=== PATIENT | female | born 1935 | race Caucasian/White ===

== ENCOUNTER 2019-08-13 16:17 | Inpatient (IN) | payer MEDICARE, OTHER ==
[~2019-08-13] VITALS: Ht 154.9 cm; Wt 70.6 kg
[2019-08-13 16:24] VITALS: BP 110/67
[2019-08-13] MEDS ORDERED: LISINOPRIL2.5 MG PO (16:29)
[2019-08-13] MEDS ORDERED: CRESTOR20 MG PO (16:30)
[2019-08-13] MEDS ORDERED: NORVASC 2.5 MG2.5 M1 PO (16:30)
[2019-08-13] MEDS ORDERED: ASA81BEC PO (16:30)
[2019-08-13] MEDS ORDERED: TOPROL XL25 MG PO (16:30)
[2019-08-13] MEDS ORDERED: OMEPRAZOLE 20 M20 M1 PO (16:30)
[2019-08-13] MEDS ORDERED: IMDUR 30 MG TAB30 M1 PO (16:31)
[2019-08-13 18:26] LABS: ABSOLUTE BASOPHILS 0.1 thou/uL (0.0-0.2); ABSOLUTE NEUTROPHILS 5.5 thou/uL (1.6-8.1); BASOPHILS 0.8 %; EOSINOPHILS 0.1 %; HEMATOCRIT 41.4 % (37.0-47.0); HEMOGLOBIN 13.8 gm/dL (12.0-15.0); LYMPHOCYTES 23.4 %; MCH 25.9 pg (26.0-34.0); MCHC 33.3 g/dL (28.0-37.0); MCV 77.8 fL (80.0-100.0); MONOCYTES 11.6 %; MPV 8.6 fl. (7.2-11.1); NUCLEATED RBCS 0 /100WBC; PLATELET COUNT* 257 thou/uL (150-400); POLYS 64.1 %; RBC 5.33 mil/uL (4.20-5.00); RDW-CV 14.1 % (10.5-14.5); WBC 8.6 thou/uL (4.0-11.0)
[2019-08-13 18:43] LABS: CALCIUM 8.5 mg/dL (8.5-10.1); CREATININE 2.6 mg/dL (0.6-1.3); POTASSIUM 3.3 mmol/L (3.5-5.1)
[2019-08-13 18:47] LABS: ALBUMIN 3.9 g/dL (3.4-5.0); TOTAL BILIRUBIN 0.4 mg/dL (<0.1-1.0); TOTAL PROTEIN 8.2 g/dL (6.4-8.2)
[2019-08-13 19:11] LABS: INFLUENZA A ANTIGEN Negative (Negative); INFLUENZA B ANTIGEN Negative (Negative)
[2019-08-14] VITALS (7 sets, daily range): BP systolic 110–137; BP diastolic 35–61
[2019-08-14 09:10] LABS: CALCIUM 7.4 mg/dL (8.5-10.1); POTASSIUM 3.6 mmol/L (3.5-5.1)
[2019-08-14 09:11] LABS: CREATININE 1.5 mg/dL (0.6-1.3)
[2019-08-14 14:53] LABS: URINE BILIRUBIN NEGATIVE (Negative); URINE BLOOD NEGATIVE (Negative); URINE CLARITY CLEAR; URINE COLOR YELLOW; URINE GLUCOSE-RANDOM NEGATIVE (Negative); URINE KETONES NEGATIVE (Negative); URINE LEUKOCYTES-REFLEX 1+ (Negative); URINE NITRITE-REFLEX NEGATIVE (Negative); URINE PROTEIN NEGATIVE (Negative); URINE SPECIFIC GRAVITY <= 1.005 (1.005-1.030); URINE UROBILINOGEN 0.2 E.U./dl (0.2-1.0)
[2019-08-14 15:01] LABS: SQUAMOUS >10 Many /LPF (0-3)
[2019-08-14 15:02] LABS: URINE RBC 0-2 Rare /HPF (0-2); URINE WBC-REFLEX 6-15 Few /HPF (0-5)
[2019-08-14 15:03] LABS: CASTS None Seen /LPF (None Seen); CRYSTALS None Seen /LPF (None Seen); MUCUS 0-3 Light strn/LPF (None Seen)
--- NOTE | 2019-08-14 16:34 | EKG ---
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
[2019-08-14] MEDS ORDERED: LOPRESSOR50 MG PO (21:43)
[2019-08-15 00:36] VITALS: BP 121/46
[2019-08-15 04:00] VITALS: BP 121/57
[2019-08-15 05:01] LABS: HEMATOCRIT 30.7 % (37.0-47.0); MCH 26.4 pg (26.0-34.0); MCHC 33.6 g/dL (28.0-37.0); MCV 78.4 fL (80.0-100.0); MPV 8.3 fl. (7.2-11.1); RBC 3.92 mil/uL (4.20-5.00); RDW-CV 14.6 % (10.5-14.5)
[2019-08-15 05:16] LABS: HEMOGLOBIN 10.3 gm/dL (12.0-15.0)
[2019-08-15 05:36] LABS: ALBUMIN 2.6 g/dL (3.4-5.0); CALCIUM 7.3 mg/dL (8.5-10.1); CREATININE 1.1 mg/dL (0.6-1.3); MAGNESIUM 1.9 mg/dL (1.8-2.4); POTASSIUM 3.4 mmol/L (3.5-5.1); TOTAL BILIRUBIN 0.1 mg/dL (<0.1-1.0); TOTAL PROTEIN 5.6 g/dL (6.4-8.2)
[2019-08-15 12:09] VITALS: BP 145/49
[2019-08-15 16:38] VITALS: BP 147/59
[2019-08-15 20:00] VITALS: BP 159/56
[2019-08-16 00:22] VITALS: BP 153/45
[2019-08-16 05:01] LABS: HEMATOCRIT 31.2 % (37.0-47.0); HEMOGLOBIN 10.4 gm/dL (12.0-15.0); MCH 26.1 pg (26.0-34.0); MCHC 33.3 g/dL (28.0-37.0); MCV 78.2 fL (80.0-100.0); MPV 8.5 fl. (7.2-11.1); RBC 3.99 mil/uL (4.20-5.00); RDW-CV 14.4 % (10.5-14.5); WBC 4.9 thou/uL (4.0-11.0)
[2019-08-16 05:09] LABS: CALCIUM 8.3 mg/dL (8.5-10.1); CREATININE 0.9 mg/dL (0.6-1.3); MAGNESIUM 1.7 mg/dL (1.8-2.4); POTASSIUM 3.4 mmol/L (3.5-5.1)
[2019-08-16 08:00] VITALS: BP 133/76
[2019-08-16 15:05] LABS: MAGNESIUM 1.7 mg/dL (1.8-2.4); POTASSIUM 3.2 mmol/L (3.5-5.1)
[2019-08-16 16:08] VITALS: BP 142/55
[2019-08-16 20:00] VITALS: BP 135/51
[2019-08-17 00:22] VITALS: BP 144/57
[2019-08-17 05:41] LABS: POTASSIUM 4.6 mmol/L (3.5-5.1)
[2019-08-17 09:00] VITALS: BP 169/73
[2019-08-17] MEDS ORDERED: FLAGYL500 M1 PO (10:33)
[2019-08-17] MEDS ORDERED: CEFUROXIME500 MG PO (10:33)
[2019-08-17] MEDS ORDERED: ACIDOPHILUS1 EAC4 PO (10:33)
[2019-08-17] MEDS ORDERED: ZOFRAN ODT4 MG PO (10:33)
[2019-08-17 11:00] VITALS: BP 169/73
== END 2019-08-17 11:55 | disposition home or self-care (01) | DRG 371 ==
LOC: M.ERS 16:17 → M.TBA-ER 21:34 → M.2W 08-14 18:53
PROVIDERS: Internal Medicine; Nurse Practitioner Family; Physician Assistant; ADMIT Internal Medicine
DX: A04.9 Bacterial intestinal infection, unspecified (principal); N17.0 Acute kidney failure with tubular necrosis; I10 Essential (primary) hypertension; E89.0 Postprocedural hypothyroidism; Z98.1 Arthrodesis status; Z90.49 Acquired absence of other specified parts of digestive tract; Z79.82 Long term (current) use of aspirin; Z88.1 Allergy status to other antibiotic agents; Z79.899 Other long term (current) drug therapy

== ENCOUNTER → 2019-10-31 | Outpatient (CLI) | payer MEDICARE, OTHER ==
[~2019-10-31] MED LIST: ACIDOPHILUS1 EAC4 PO; ASA81BEC PO; ASPIR 8181 M1 PO; BIDIL TABLET1 EACH PO; CEFUROXIME500 MG PO; CRESTOR20 MG PO; FLAGYL500 M1 PO; IMDUR 30 MG TAB30 M1 PO; ISOSORBIDE MONO30 M1 PO; LISINOPRIL2.5 MG PO; LOPRESSOR50 MG PO; NORVASC 2.5 MG2.5 M1 PO; OMEPRAZOLE 20 M20 M1 PO; TOPROL XL25 MG PO; ZOFRAN ODT4 MG PO
== END ==
LOC: M.ULTRA 14:38
DX: E04.2 Nontoxic multinodular goiter (principal); M19.011 Primary osteoarthritis, right shoulder; M75.82 Other shoulder lesions, left shoulder; M75.81 Other shoulder lesions, right shoulder; W19.XXXA Unspecified fall, initial encounter; Y93.89 Activity, other specified; Y92.89 Other specified places as the place of occurrence of the external cause; Y99.8 Other external cause status

== ENCOUNTER 2019-11-03 17:04 | Inpatient (IN) | payer MEDICARE, OTHER ==
[~2019-11-03] VITALS: Ht 154.9 cm; Wt 71.7 kg
--- NOTE | ~2019-11-03 | CON ---
[address] [address] CONSULTATION Name: EDWARDVIDALLEONIDAS Silvia Room: [address] IN .R.#: [id number] Admission: 11/03/19 Attend Phys: Fidel Joy MD Discharge: Date of : 35 Report #: [id number] THIS REPORT FOR: //name// cc: Naty Montgomery Maggie M. DO ~ THIS REPORT FOR: //name// CC: Fidel Montgomery CARDIOLOGY CONSULTATION HISTORY OF PRESENT ILLNESS: I was asked by Dr. Joy to see this 84-year-old white female in cardiology consultation for a minimal troponin elevation. This lady has a history of apparent coronary spasm, although it has never been documented. She has had episodes of both chest and left arm pain in the past in [place], [place] where she had cardiac catheterization x 2, both of which were negative. She has been treated as apparent coronary spasm because of minimal troponin elevations. She did apparently have a normal troponin on a recent admission here for a bacterial infection. She came in this time because she thought she was having a stroke. It was associated though with left arm discomfort that started at her neck and going down to her left arm to her elbow. She has had that before, but not with the stroke-like symptoms. She said she had numbness in the left face and drooling from the left side of her mouth, and numbness and weakness in the left upper extremity from the elbow to the shoulder, to the ER doctor that turned into the pain when she was questioned later and numbness in the right face and drooling on the right side of the mouth. She also said she could not talk right and could not think right. She says yesterday that the left side of her face was numb and tingly. She has no previous history of TIA or CVA. 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 She says her thyroid feels like it is constantly choking her. She recently had a thyroid ultrasound for this problem and was found to have thyroid nodules; however, she does not have a palpable thyroid or palpable thyroid nodules. She is status post a left partial thyroidectomy 30 years ago. She is not having any further TIA or CVA like symptoms and not having any left arm pain. Her EKG when she came in demonstrated normal sinus rhythm, was a normal EKG. Her troponins were minimally elevated. I believe she only had 2 done, the initial one was at 1700 yesterday and was 0.13, a subsequent one done at 1900 was 0.09. Those were done in the ER. She is on amlodipine, apparently for her blood pressure, but possibly also for coronary spasm. She also has been on isosorbide mononitrate 30 mg daily, apparently for coronary spasm. ADDITIONAL MEDICATIONS: Include metoprolol 25 mg b.i.d., Crestor 20 mg daily, lisinopril 40 mg daily. Her amlodipine dose is 5 mg daily and her Imdur dose is 30 [place] [address] CONSULTATION Name: EDWARDLEONIDAS BROOKS Room: [address] IN ..#: [id number] Admission: 11/03/19 Attend Phys: Fidel Joy MD Discharge: Date of : 35 Report #: [id number] PAST MEDICAL HISTORY: She does have a past medical history of hypercholesterolemia and hypertension. She was in [place] with a bacterial infection at the end of July. FAMILY HISTORY: Remarkable for mother dying of cancer and a sister dying of cancer. ALLERGIES: SHE IS ALLERGIC TO CIPRO AND BACTRIM. SOCIAL HISTORY: She is , does not smoke, drink or use illegal drugs. REVIEW OF SYSTEMS: Positive for palpitations, nearly passing out, heart murmur, extremity edema and thyroid trouble, otherwise is negative for some 45 different complaints in 14 different system categories. Please see review of system form for details and negatives in the review of systems. The categories reviewed include central nervous system, general, respiratory, cardiovascular, endocrine, gastrointestinal, genitourinary, hematologic, lymphatic, allergic, immunologic, psychiatric, musculoskeletal, skin, eyes, ears, nose, mouth, and throat. PHYSICAL EXAMINATION: GENERAL: She presents as a well-developed, well-nourished white female, in no acute distress. VITAL SIGNS: Her pulse was 61 and regular, blood pressure 146/81, respirations 18 and regular, temperature is 98.0. HEENT: Her head was atraumatic. Eyes clear. NECK: Supple. There is no jugular venous distention or hepatojugular reflux. Thyroid is not enlarged. There is no adenopathy. SKIN: Warm and dry. Mucous membranes are moist. LUNGS: Clear to auscultation and percussion. HEART: Revealed normal first and second heart sound. There is soft S4. There is no S3. There are no murmurs, rubs, thrills, heaves or gallops. PMI is nondisplaced. ABDOMEN: Soft, flat and nontender. No palpable masses, no organomegaly. EXTREMITIES: Reveal no cyanosis, clubbing or edema. NEUROLOGIC: The patient mentated normally, talked normally, moved all extremities normally. IMPRESSION: 1. Minimal troponin elevation. 2. Left arm pain. 3. Possible transient ischemic attack. 4. History of possible coronary spasm. 5. Essential hypertension. 6. Hypercholesterolemia. RECOMMENDATION: I will get another troponin to see if it returned to normal [address] [address] CONSULTATION Name: LEONIDAS CRUZ Room: [address]#: [id number] Admission: 11/03/19 Attend Phys: Fidel Joy MD Discharge: Date of : 35 Report #: [id number] level and stop the BiDil that she has been getting in the hospital and put her on the Imdur that she has been getting. I will get an echo and a stress test. Thank you very much for asking me to see this patient. If there are any questions, please feel free to contact me. By: [id number]. Chris Stephenson MD, FACC /nt
[~2019-11-03 17:04] MED LIST changes: -ASPIR 8181 M1 PO; -BIDIL TABLET1 EACH PO; -ISOSORBIDE MONO30 M1 PO
[2019-11-03 17:08] VITALS: BP 125/71
[2019-11-03] MEDS ORDERED: LISINOPRIL2.5 MG PO (17:22)
[2019-11-03] MEDS ORDERED: BIDIL TABLET1 EACH PO (17:23)
[2019-11-03 17:24] LABS: ABSOLUTE BASOPHILS 0.2 thou/uL (0.0-0.2); ABSOLUTE EOSINOPHILS 0.3 thou/uL (0.0-0.7); ABSOLUTE LYMPHOCYTES 5.2 thou/uL (0.8-5.3); ABSOLUTE NEUTROPHILS 8.8 thou/uL (1.6-8.1); BASOPHILS 1.4 %; EOSINOPHILS 1.8 %; HEMATOCRIT 40.8 % (37.0-47.0); HEMOGLOBIN 13.6 gm/dL (12.0-15.0); LYMPHOCYTES 33.5 %; MCH 26.5 pg (26.0-34.0); MCHC 33.2 g/dL (28.0-37.0); MCV 79.6 fL (80.0-100.0); MONOCYTES 6.3 %; NUCLEATED RBCS 0 /100WBC; PLATELET COUNT* 282 thou/uL (150-400); RBC 5.13 mil/uL (4.20-5.00); RDW-CV 15.1 % (10.5-14.5); WBC 15.4 thou/uL (4.0-11.0)
[2019-11-03] MEDS ORDERED: NORVASC 2.5 MG2.5 M1 PO (17:24)
[2019-11-03 17:31] LABS: CALCIUM 8.3 mg/dL (8.5-10.1); CREATININE 1.1 mg/dL (0.6-1.3); POTASSIUM 3.8 mmol/L (3.5-5.1)
[2019-11-03 17:33] LABS: APTT 22.4 Seconds (25.0-31.3); PROTIME 9.8 Seconds (9.20-11.50)
[2019-11-03 17:35] LABS: ALBUMIN 3.2 g/dL (3.4-5.0); TOTAL BILIRUBIN 0.3 mg/dL (<0.1-1.0); TOTAL PROTEIN 6.8 g/dL (6.4-8.2)
[2019-11-03 19:43] LABS: URINE BILIRUBIN NEGATIVE (Negative); URINE BLOOD NEGATIVE (Negative); URINE CLARITY CLEAR; URINE COLOR YELLOW; URINE GLUCOSE-RANDOM NEGATIVE (Negative); URINE KETONES NEGATIVE (Negative); URINE LEUKOCYTES-REFLEX TRACE (Negative); URINE NITRITE-REFLEX NEGATIVE (Negative); URINE PROTEIN NEGATIVE (Negative); URINE UROBILINOGEN 0.2 E.U./dl (0.2-1.0)
[2019-11-03 19:48] LABS: SQUAMOUS 0-3 Few /LPF (0-3); URINE RBC 0-2 Rare /HPF (0-2); URINE WBC-REFLEX 0-5 Rare /HPF (0-5)
[2019-11-03 19:49] LABS: BACTERIA-REFLEX 1-9 Few /HPF (None Seen); CRYSTALS None Seen /LPF (None Seen); HYALINE CASTS 0-3 Few /LPF (None Seen)
[2019-11-03 20:27] VITALS: BP 127/51
[2019-11-03 21:00] VITALS: BP 126/47
[2019-11-04] VITALS: BP 154/55
[2019-11-04 04:00] VITALS: BP 146/81
[2019-11-04 11:40] LABS: CHOLESTEROL 153 mg/dL (<200); HDL CHOLESTEROL 54 mg/dL (>40); LDL CHOLESTEROL 54 mg/dL (<100); TC:HDL 2.8 Ratio (Not establshd); TRIGLYCERIDE 227 mg/dL (<150); VLDL 45 mg/dL (<40)
[2019-11-04 11:41] VITALS: BP 137/61
[2019-11-04 11:41] LABS: SERUM ASSESSMENT Clear
[2019-11-04 12:00] VITALS: BP 137/61; BP 84/46; BP 84/48
[2019-11-04 13:34] LABS: % SATURATION 41 % (20-39); IRON 99 ug/dL (50-175)
--- NOTE | 2019-11-04 15:34 | EKG ---
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 : 1935 Requested By: Sirena Looney Order Number: [id number] MD: Chris Stephenson Measurements Intervals [place] Rate: 78 P: 33 MD: 160 QRS: 28 QRSD: 78 T: 24 QT: 372 QTc: 424 Interpretive Statements Sinus rhythm Probable left atrial enlargement Compared to ECG 08/13/2019 18:01:21 No significant changes Electronically Signed On 11-04-2019 15:32:44 CDT by Chris Stephenson [email or web address] <ELECTRONICALLY SIGNED> By: Mazin Stephenson MD, [facility] 11/04/19 1532 1707 1707 Mazin Stephenson MD, [facility] /EPI
[2019-11-04 16:13] VITALS: BP 120/54
[2019-11-04 20:00] VITALS: BP 125/61
[2019-11-05] VITALS: BP 127/66
[2019-11-05 02:07] LABS: GLYCOHEMOGLOBIN (HGB A1C) 6.3 % (4.8-5.6)
[2019-11-05 04:00] VITALS: BP 129/54
[2019-11-05 04:53] LABS: URINE BILIRUBIN NEGATIVE (Negative); URINE BLOOD NEGATIVE (Negative); URINE CLARITY CLEAR; URINE COLOR YELLOW; URINE GLUCOSE-RANDOM NEGATIVE (Negative); URINE KETONES NEGATIVE (Negative); URINE LEUKOCYTES-REFLEX NEGATIVE (Negative); URINE NITRITE-REFLEX NEGATIVE (Negative); URINE PROTEIN NEGATIVE (Negative); URINE UROBILINOGEN 0.2 E.U./dl (0.2-1.0)
[2019-11-05 08:00] VITALS: BP 127/58
[2019-11-05 15:26] LABS: ABSOLUTE EOSINOPHILS 0.1 thou/uL (0.0-0.7); ABSOLUTE LYMPHOCYTES 2.4 thou/uL (0.8-5.3); ABSOLUTE MONOCYTES 0.8 thou/uL (0.0-1.2); ABSOLUTE NEUTROPHILS 8.9 thou/uL (1.6-8.1); BASOPHILS 0.2 %; EOSINOPHILS 0.8 %; HEMATOCRIT 39.3 % (37.0-47.0); HEMOGLOBIN 12.9 gm/dL (12.0-15.0); LYMPHOCYTES 19.4 %; MCH 26.5 pg (26.0-34.0); MCHC 32.9 g/dL (28.0-37.0); MCV 80.7 fL (80.0-100.0); MONOCYTES 6.4 %; NUCLEATED RBCS 0 /100WBC; POLYS 73.2 %; RBC 4.86 mil/uL (4.20-5.00); RDW-CV 15.7 % (10.5-14.5); WBC 12.2 thou/uL (4.0-11.0)
[2019-11-05 15:29] LABS: PLATELET COUNT* 196 thou/uL (150-400)
[2019-11-05 15:49] LABS: CALCIUM 8.3 mg/dL (8.5-10.1); POTASSIUM 4.2 mmol/L (3.5-5.1); TOTAL BILIRUBIN 0.6 mg/dL (<0.1-1.0); TOTAL PROTEIN 6.1 g/dL (6.4-8.2)
[2019-11-05 16:11] VITALS: BP 142/63
--- NOTE | 2019-11-05 16:37 | 2DMMODE ---
[place] [address] 2 D/M-MODE ECHOCARDIOGRAM Name: ANTHONYLEONIDAS Silvia Room: [address] IN [facility]#: [id number] Admission: 11/03/19 Attend Phys: Fidel Joy, Discharge: Date of : 35 Date of Service: 11/05/19 1635 Report #: [id number] THIS REPORT FOR: cc: Naty Montgomery Maggie M. DO Liston, Michael J. MD [facility] ~ APPROVED REPORT Study performed: 11/05/2019 09:56:57 EXAM: Comprehensive 2D, Doppler, and color-flow Echocardiogram Patient Location: In-Patient Room #: [facility] Status: routine BSA: 1.71 HR: 63 bpm BP: 129/54 mmHg Rhythm: NSR Other Information Study Quality: Good Indications CVA/TIA Elevated Troponin left arm pain Echo Enhancing Agent Indication: Rule out Shunt Agent(s) / Amount(s) Used: Agitated Saline 10 cc 2D Dimensions IVSd: 9.06 (7-11mm) LVOT Diam: 19.08 (18-24mm) LVDd: 43.77 mm PWd: 8.40 (7-11mm) Ascending Ao: 32.51 (22-36mm) LVDs: 24.27 (25-40mm) Aortic Root: 32.21 mm Volumes Left Atrial Volume (Systole) LA ESV Index: 29.40 mL/m2 Aortic Valve AoV Peak Jeffrey.: 1.44 m/[place] [address] 2 D/M-MODE ECHOCARDIOGRAM Name: LEONIDAS CRUZ Room: [address] IN [facility]#: [id number] Admission: 11/03/19 Attend Phys: Fidel Joy, Discharge: Date of : 35 Date of Service: 11/05/19 1635 Report #: [id number] Peak Gr.: 8.32 mmHg LVOT Max P.65 mmHg AO Mean Gr.: 3.75 mmHg LVOT Mean P.43 mmHg LVOT Max V: 1.19 m/s AO V2 VTI: 28.26 cm LVOT Mean V: 0.70 m/s ESTUARDO (VTI): 2.81 cm2 LVOT V1 VTI: 27.74 cm Mitral Valve MV Mean Gr.: 1.88 mmHg E/A Ratio: 0.73 MV Decel. Time: 360.39 ms MV E Max Jeffrey.: 0.91 m/s MV PHT: 104.51 ms MVA (PHT): 2.10 cm2 TDI E/Lateral E': 13.00 E/Medial E': 18.20 Medial E' Jeffrey.: 0.05 m/s Lateral E' Jeffrey.: 0.07 m/s Pulmonary Valve PV Peak Jeffrey.: 0.89 m/s PV Peak Gr.: 3.14 mmHg Tricuspid Valve RAP Estimate: 5.00 mmHg TR Peak Gr.: 25.52 mmHg RVSP: 30.00 mmHg PA Pressure: 30.00 mmHg Left Ventricle The left ventricle is normal size. There is normal LV segmental wall motion. There is normal left ventricular wall thickness. Left ventricular systolic function is normal. LVEF is 55-60%. Grade I - abnormal relaxation pattern. Right Ventricle The right ventricle is normal size. The right ventricular systolic function is normal. Atria The left atrium size is normal. The interatrial septum is intact with no evidence for an atrial septal defect. The right atrium size is normal. Aortic Valve The aortic valve is normal in structure. No aortic regurgitation is present. There is no aortic valvular stenosis[place] [address] 2 D/M-MODE ECHOCARDIOGRAM Name: LEONIDAS CRUZ Room: [address] IN [facility]#: [id number] Admission: 11/03/19 Attend Phys: Fidel Joy, Discharge: Date of : 35 Date of Service: 11/05/19 1635 Report #: [id number] There is mitral annular calcification. Trace mitral regurgitation. No evidence of mitral valve stenosis. Tricuspid Valve The tricuspid valve is normal in structure. Mild tricuspid regurgitation. No pulmonary hypertension. Pulmonic Valve The pulmonary valve is normal in structure. Trace pulmonic regurgitation. Great Vessels The aortic root is normal in size. IVC is normal in size and collapses >50% with inspiration. Pericardium There is no pericardial effusion. <Conclusion> The left ventricle is normal size. There is normal left ventricular wall thickness. Left ventricular systolic function is normal. LVEF is 55-60%. Grade I - abnormal relaxation pattern. The interatrial septum is intact with no evidence for an atrial septal defect. Trace mitral regurgitation. Mild tricuspid regurgitation. No pulmonary hypertension. IVC is normal in size and collapses >50% with inspiration. <ELECTRONICALLY SIGNED> By: Colin Strickland MD, FACC 11/05/19 1635 1635 1635 Colin Strickland MD, FACC /INF
--- NOTE | 2019-11-05 16:52 | CARDNUC ---
[place] [address] CARDIAC NUCLEAR IMAGING REPORT Name: LEONIDAS CRUZ Room: [address] IN [facility]#: [id number] Admission: 11/03/19 Attend Phys: Fidel Joy, Discharge: Date of : 35 Date of Service: 11/05/19 1650 Report #: [id number] THIS REPORT FOR: cc: Naty Montgomery Maggie M. DO Liston, Michael J. MD [facility] ~ APPROVED REPORT Imaging Protocol: Rest Tc-99m/Stress Tc-99m 1 day Study performed: 11/04/2019 12:12:00 Indication: Dyspnea, ELEVATED TROPONINS, LEFT ARM NUMBNESS, LIGHTHEADEDNESS WITH FACIAL DROOP. Patient Location: In-Patient Room #: 212 Stress Tech: Mandi Monte Stress Nurse: June Cuevas RN NM Tech:ANDREW Zabala Ht: 5 ft 0 in Wt: 159 lbs BSA: 1.69 m2 BMI: 31.04 Medical History Medical History: DIAZ, HTN, HLD, ELEVATED TROPONINS, LIGHTHEADEDNESS WITH FACIAL DROOP, LEFT ARM NUMBNESS, FALL RISK. Medications: AMLODIPINE, ASA 325 MG, LISINOPRIL, METOPROLOL, ATORVASTATIN, IMDUR. Allergies: CIPRO, SULFA ABT, TRIMETHOPRIM. Cardiac Risk Factors: Age, HTN, Hyperlipidemia, SOB, ELEVATED TROPONINS. Previous Cardiac Procedures: NONE Pretest Chest Pain Characteristics: No chest pain Exercise History: Sedentary Physical Disabilities: FALL RISK, UNSTABLE GAIT, DIZZINESS. Meds Held (24 hrs): METOPROLOL, IMDUR. Resting Data Rest SPECT myocardial perfusion imaging was performed in supine position 30 minutes following the intravenous injection of 9.7 mCi of Tc-99m Sestamibi. Time of rest injection: 1000 Date: 11/05/2019 The images were gated to evaluate regional wall motion and calculate left ventricular ejection fraction. Administration Route: [place] [address] CARDIAC NUCLEAR IMAGING REPORT Name: EDWARDLEONIDAS BROOKS Room: [address]#: [id number] Admission: 11/03/19 Attend Phys: Fidel Joy, Discharge: Date of : 35 Date of Service: 11/05/19 1650 Report #: [id number] Administration Site: Right AC Pharmacologic Stress Pharmacologic stress test was performed by injecting Regadenoson 0.4 mg IV push over 10-15 seconds immediately followed by the intravenous injection of 29.8 mCi of Tc-99m Sestamibi. Time of stress injection: 1155 Date: 11/05/2019 Administration Route: IV Administration Site: Right AC Gated Stress SPECT was performed 40 minutes after stress injection. The images were gated to evaluate regional wall motion and calculate left ventricular ejection fraction. Stress only was performed in the Supine position. Stress Test Details Stress Test: Pharmacologic stress testing performed using 0.4 mg of regadenoson per 5 mL given IV over 10 seconds. Reason for pharmacologic stress test: FALL RISK, UNSTABLE GAIT, DIZZINESS.. HR Max Heart Rate (APMHR): 136 bpm Resting HR: 72 bpm Target HR (85% APMHR): 115 bpm Max HR Achieved: 101 bpm % of APMHR: 74 Recovery HR: 83 bpm BP Resting BP: 135/69 mmHg Max BP: 140/58 mmHg Recovery BP: 141/51 mmHg ECG Resting ECG: Sinus Rhythm Stress ECG: Sinus Tachycardia ST Change: None Arrhythmia: VPC's Recovery ECG: Sinus Rhythm Recovery ST Change: None Recovery Arrhythmia: VPC Clinical Reason for Termination: Completed protocol Stress Symptoms: Abdominal discomfort, Dyspnea. Exercise duration: 00 min 00 sec Exercise capacity: 1.00 METs The patient tolerated Lexiscan infusion [place] [address] CARDIAC NUCLEAR IMAGING REPORT Name: LEONIDAS CRUZ Room: [address]#: [id number] Admission: 11/03/19 Attend Phys: Fidel Joy, Discharge: Date of : 35 Date of Service: 11/05/19 1650 Report #: [id number] symptoms. Nurse Comments AN 84 YEAR OLD FEMALE INPATIENT PRESNTED FOR A SITTING LEXISCAN R/T DIAZ, LEFT ARM NUMBNESS, ELEVATED TROPONINS, DIZZINESS WITH FACIAL DROOP. TEST WELL TOLERATED. RECOVERY UNREMARKABLE WITH PO CAFFEINE. PATIENT WAS ESCORTED BY STAFF VIA WHEELCHAIR TO NUCLEAR MEDICINE FOR IMAGING. PATIENT WAS STABLE AND STATED SHE FELT GOOD AT THAT TIME. Stress ECG Conclusion Baseline twelve-lead EKG shows sinus rhythm without significant ST segment or T wave abnormality. EKG obtained during a post Lexiscan infusion shows sinus rhythm and sinus tachycardia with no significant ST segment or T wave changes when compared to baseline. There were no stress-induced arrhythmias. Study Quality Study: Good Artifact: Mild Apical thinning Study Data At rest, the left ventricular ejection fraction was 77%.. Post stress, the left ventricular ejection was 76%.. TID = 0.95. Perfusion There is a focal fixed defect of the apex that is of mild intensity. Gated study showed normal motion in this region suggesting apical thinning artifact. There were no other significant fixed or reversible defects identified. Wall Motion Normal left ventricular wall motion. Nuclear Conclusion ECG Findings: negative for ischemia Clinical Findings: negative for ischemia Nuclear Findings: negative for ischemia Exercise Capacity: not assessed Left Ventricular Function: normal Risk Study: low Perfusion study showed no defect to suggest ischemia. Left ventricular systolic function is normal on gated studies. This [place] [address] CARDIAC NUCLEAR IMAGING REPORT Name: LEONIDAS CRUZ Room: [address]#: [id number] Admission: 11/03/19 Attend Phys: Fidel Joy, Discharge: Date of : 35 Date of Service: 11/05/19 1650 Report #: [id number] <Conclusion> Baseline twelve-lead EKG shows sinus rhythm without significant ST segment or T wave abnormality. EKG obtained during a post Lexiscan infusion shows sinus rhythm and sinus tachycardia with no significant ST segment or T wave changes when compared to baseline. There were no stress-induced arrhythmias. <ELECTRONICALLY SIGNED> By: Colin Strickland MD, FACC 11/05/191649 49 49 Colin Strickland MD, FACC /INF
[2019-11-05] MEDS ORDERED: ISOSORBIDE MONO30 M1 PO (17:50)
[2019-11-05] MEDS ORDERED: ASPIR 8181 M1 PO (17:51)
[2019-11-05 17:53] VITALS: BP 142/63
== END 2019-11-05 18:35 | disposition home or self-care (01) | DRG 281 ==
LOC: M.ERS 17:04 → M.2W 19:01 → M.TBA-ER 19:01 → M.2W 20:25
PROVIDERS: Internal Medicine; Personal Emergency Response Attendant; Psychiatry & Neurology Neurology; ADMIT Internal Medicine
DX: I21.A1 Myocardial infarction type 2 (principal); G45.9 Transient cerebral ischemic attack, unspecified; E78.5 Hyperlipidemia, unspecified; R29.810 Facial weakness; E89.0 Postprocedural hypothyroidism; E78.00 Pure hypercholesterolemia, unspecified; I10 Essential (primary) hypertension; Z90.49 Acquired absence of other specified parts of digestive tract; Z79.899 Other long term (current) drug therapy; Z79.84 Long term (current) use of oral hypoglycemic drugs; Z88.1 Allergy status to other antibiotic agents

== ENCOUNTER 2019-11-30 12:02 | Observation (INO) | payer MEDICARE, OTHER ==
[~2019-11-30] VITALS: Ht 154.9 cm; Wt 73.2 kg
[~2019-11-30 12:02] MED LIST changes: +ASPIR 8181 M1 PO; +BIDIL TABLET1 EACH PO; +ISOSORBIDE MONO30 M1 PO
[2019-11-30 12:06] VITALS: BP 161/63
[2019-11-30] MEDS ORDERED: ISORDIL40 M1 PO (12:09)
[2019-11-30 12:28] LABS: ABSOLUTE BASOPHILS 0.1 thou/uL (0.0-0.2); ABSOLUTE EOSINOPHILS 0.2 thou/uL (0.0-0.7); ABSOLUTE LYMPHOCYTES 2.9 thou/uL (0.8-5.3); ABSOLUTE MONOCYTES 0.8 thou/uL (0.0-1.2); ABSOLUTE NEUTROPHILS 5.7 thou/uL (1.6-8.1); BASOPHILS 0.8 %; EOSINOPHILS 2.2 %; HEMATOCRIT 34.6 % (37.0-47.0); HEMOGLOBIN 11.6 gm/dL (12.0-15.0); LYMPHOCYTES 30.1 %; MCH 26.7 pg (26.0-34.0); MCHC 33.5 g/dL (28.0-37.0); MCV 79.9 fL (80.0-100.0); MPV 8.3 fl. (7.2-11.1); NUCLEATED RBCS 0 /100WBC; PLATELET COUNT* 248 thou/uL (150-400); POLYS 58.9 %; RBC 4.33 mil/uL (4.20-5.00); RDW-CV 15.4 % (10.5-14.5); WBC 9.7 thou/uL (4.0-11.0)
[2019-11-30 12:39] LABS: CALCIUM 8.3 mg/dL (8.5-10.1); CREATININE 1.3 mg/dL (0.6-1.3); POTASSIUM 4.1 mmol/L (3.5-5.1)
[2019-11-30 12:41] LABS: APTT 25.1 Seconds (25.0-31.3); PROTIME 10.1 Seconds (9.20-11.50)
[2019-11-30 12:51] LABS: ALBUMIN 3.4 g/dL (3.4-5.0); MAGNESIUM 1.8 mg/dL (1.8-2.4); TOTAL BILIRUBIN 0.4 mg/dL (<0.1-1.0); TOTAL PROTEIN 6.9 g/dL (6.4-8.2)
--- NOTE | 2019-11-30 13:42 | NUR ---
X-RAY CALLED TO INQUIRE IF PATIENT HAS ANY PROBLEMS SWALLOWING DUE TO TESTS ORDERED WHERE PT WILL NEED TO SWALLOW A BARIUM CONTRAST. PT DENIES ISSUES WITH SWALLOWING AND STATES SHE DOES TAKE OMEPRAZOLE DUE TO GERD. THIS INFORMATION WAS GIVEN TO X-RAY.
--- NOTE | 2019-11-30 14:53 | NUR ---
PT CONSULTING WITH DR. RG AT THIS TIME.
[2019-11-30 18:19] VITALS: BP 133/55
[2019-11-30 18:30] VITALS: BP 176/67
[2019-11-30 20:29] VITALS: BP 130/58
[2019-12-01] VITALS: BP 144/70
[2019-12-01 04:00] VITALS: BP 134/60
--- NOTE | 2019-12-01 06:49 | NUR ---
PT IS ABLE TO COMMUNICATE HER NEEDS TO STAFF EFFECTIVELY. SHE HAS DENIED THE NEED FOR PAIN MEDICATION UP TO THIS TIME. TELE OBS. STATUS AT THIS TIME. CARDIOLOGY CONSULTED; HAS ALREADY CALLED REGARDING HER; KNOWN BY DR. MUNIZ AND CARDIOLOGY GROUP.
[2019-12-01 08:00] VITALS: BP 170/70
--- NOTE | 2019-12-01 09:44 | EKG ---
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 : 1935 Requested By: Herbert Spears Order Number: [id number] MD: Chris Stephenson Measurements Intervals [place] Rate: 66 P: 37 RI: 177 QRS: 19 QRSD: 88 T: 30 QT: 385 QTc: 404 Interpretive Statements Sinus rhythm Paired ventricular premature complexes Compared to ECG 11/03/2019 17:07:56 Ventricular premature complex(es) now present Electronically Signed On 12-01-2019 9:43:37 CDT by Chris Stephenson [email or web address] <ELECTRONICALLY SIGNED> By: Mazin Stephenson MD, [facility] 12/01/19 0943 120 1207 Mazin Stephenson MD, [facility] /EPI
[2019-12-01 14:09] VITALS: BP 170/70
--- NOTE | 2019-12-01 14:42 | NUR ---
PT DISCHARGED TO HOME IN STABLE CONDITION. DC INSTRUCTIONS, MEDICATIONS,FOLLOW UP CARE REVIEWED WITH PT AND PT REPORTS UNDERSTANDING WITHOUT FURTHER QUESTIONS.
== END 2019-12-01 14:42 | disposition home or self-care (01) ==
LOC: M.ERS 12:02 → M.TBA-ER 13:00 → M.2W 18:40
PROVIDERS: Family Medicine; ADMIT Internal Medicine; ATTEND Internal Medicine
DX: G45.9 Transient cerebral ischemic attack, unspecified (principal); M48.02 Spinal stenosis, cervical region; I12.9 Hypertensive chronic kidney disease with stage 1 through stage 4 chronic kidney disease, or unspecified chronic kidney disease; N18.3 Chronic kidney disease, stage 3 (moderate); E66.9 Obesity, unspecified

== ENCOUNTER → 2020-03-26 | Outpatient (CLI) | payer MEDICARE, OTHER ==
[~2020-03-26] MED LIST changes: +ISORDIL40 M1 PO
== END ==
LOC: M.ULTRA 03-20 10:14
PROVIDERS: ATTEND Family Medicine
DX: R10.30 Lower abdominal pain, unspecified (principal)

== ENCOUNTER → 2020-04-03 | Outpatient (CLI) | payer MEDICARE, OTHER ==
[2020-04-03 07:17] LABS: CREATININE 1.2 mg/dL (0.6-1.3)
== END ==
LOC: M.LAB 06:42 → M.CT 08:00
PROVIDERS: ATTEND Family Medicine
DX: R19.8 Other specified symptoms and signs involving the digestive system and abdomen (principal); R10.31 Right lower quadrant pain; N18.30 Chronic kidney disease, stage 3 unspecified

== ENCOUNTER → 2020-05-27 | Outpatient (CLI) | payer MEDICARE, OTHER ==
[~2020-05-27] VITALS: Ht 152.4 cm; Wt 72.6 kg
[2020-05-27] VITALS (7 sets, daily range): BP systolic 114–145; BP diastolic 54–66
[2020-05-27 09:02] LABS: CREATININE 1.1 mg/dL (0.6-1.3)
== END ==
LOC: M.LAB 05-19 08:30 → M.CT 05-19 09:30 → M.LAB 05-21 08:30
PROVIDERS: ATTEND Internal Medicine
DX: Z01.812 Encounter for preprocedural laboratory examination (principal); I20.1 Angina pectoris with documented spasm; R73.9 Hyperglycemia, unspecified; I12.9 Hypertensive chronic kidney disease with stage 1 through stage 4 chronic kidney disease, or unspecified chronic kidney disease; N18.30 Chronic kidney disease, stage 3 unspecified; E78.00 Pure hypercholesterolemia, unspecified; M79.602 Pain in left arm

== ENCOUNTER 2020-07-02 09:16 | Observation (INO) | payer MEDICARE, OTHER ==
[~2020-07-02] VITALS: Ht 154.9 cm; Wt 72.2 kg
[~2020-07-02 09:16] MED LIST changes: +ZESTRIL40 MG PO
[2020-07-02 09:33] VITALS: BP 152/62
[2020-07-02] MEDS ORDERED: OMEPRAZOLE 20 M20 M1 PO (09:56)
[2020-07-02 10:06] LABS: ABSOLUTE BASOPHILS 0.1 thou/uL (0.0-0.2); ABSOLUTE EOSINOPHILS 0.2 thou/uL (0.0-0.7); ABSOLUTE LYMPHOCYTES 2.8 thou/uL (0.8-5.3); ABSOLUTE MONOCYTES 0.6 thou/uL (0.0-1.2); BASOPHILS 0.8 %; EOSINOPHILS 2.5 %; HEMATOCRIT 38.5 % (37.0-47.0); HEMOGLOBIN 12.5 gm/dL (12.0-15.0); LYMPHOCYTES 31.8 %; MCHC 32.5 g/dL (28.0-37.0); MCV 80.3 fL (80.0-100.0); MONOCYTES 7.1 %; MPV 8.5 fl. (7.2-11.1); NUCLEATED RBCS 0 /100WBC; PLATELET COUNT* 252 thou/uL (150-400); POLYS 57.8 %; RDW-CV 13.8 % (10.5-14.5); WBC 8.7 thou/uL (4.0-11.0)
[2020-07-02 10:22] LABS: CALCIUM 9.1 mg/dL (8.5-10.1); CREATININE 1.2 mg/dL (0.6-1.3); POTASSIUM 4.3 mmol/L (3.5-5.1)
[2020-07-02 10:26] LABS: MAGNESIUM 2.1 mg/dL (1.8-2.4); TOTAL BILIRUBIN 0.4 mg/dL (<0.1-1.0); TOTAL PROTEIN 7.6 g/dL (6.4-8.2)
[2020-07-02 16:00] VITALS: BP 137/32
--- NOTE | 2020-07-02 16:34 | EKG ---
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 : 1935 Requested By: Joseluis Lopez Order Number: [id number] MD: Rodri Arreguin Measurements Intervals [place] Rate: 62 P: 43 GA: 165 QRS: 19 QRSD: 89 T: 20 QT: 409 QTc: 416 Interpretive Statements Sinus rhythm Atrial premature complex Consider anterior infarct Baseline wander in lead(s) II,III,aVR,aVF Compared to ECG 11/30/2019 12:07:54 Atrial premature complex(es) now present Myocardial infarct finding now possible Ventricular premature complex(es) no longer present Electronically Signed On 07-02-2020 16:33:51 GAUGE MACHINE OPERATOR by Rodri Arreguin [email or web address] <ELECTRONICALLY SIGNED> By: Rodri Arreguin MD, [facility] 07/02/20 1633 0 0 Rodri Arreguin MD, [facility] /EPI
[2020-07-02 18:30] VITALS: BP 124/45
[2020-07-02 18:45] VITALS: BP 134/56
[2020-07-02 21:00] VITALS: BP 117/63
[2020-07-03] VITALS: BP 132/81
[2020-07-03 04:00] VITALS: BP 142/58
[2020-07-03 04:11] LABS: ABSOLUTE EOSINOPHILS 0.2 thou/uL (0.0-0.7); ABSOLUTE LYMPHOCYTES 2.6 thou/uL (0.8-5.3); ABSOLUTE MONOCYTES 0.5 thou/uL (0.0-1.2); ABSOLUTE NEUTROPHILS 3.1 thou/uL (1.6-8.1); BASOPHILS 0.5 %; EOSINOPHILS 3.8 %; HEMATOCRIT 34.9 % (37.0-47.0); HEMOGLOBIN 11.4 gm/dL (12.0-15.0); LYMPHOCYTES 39.6 %; MCH 25.9 pg (26.0-34.0); MCHC 32.5 g/dL (28.0-37.0); MCV 79.7 fL (80.0-100.0); MONOCYTES 7.9 %; MPV 8.7 fl. (7.2-11.1); NUCLEATED RBCS 0 /100WBC; PLATELET COUNT* 201 thou/uL (150-400); POLYS 48.2 %; RBC 4.38 mil/uL (4.20-5.00); RDW-CV 14.2 % (10.5-14.5); WBC 6.5 thou/uL (4.0-11.0)
[2020-07-03 04:21] LABS: CALCIUM 8.9 mg/dL (8.5-10.1); CREATININE 1.1 mg/dL (0.6-1.3); POTASSIUM 3.7 mmol/L (3.5-5.1)
[2020-07-03 08:00] VITALS: BP 126/48
[2020-07-03 11:55] VITALS: BP 92/48
[2020-07-03 14:31] VITALS: BP 92/48
== END 2020-07-03 15:45 | disposition home or self-care (01) ==
LOC: M.ERS 09:16 → M.TBA-ER 11:34 → M.2W 18:54
PROVIDERS: Emergency Medicine Emergency Medical Services; ADMIT Internal Medicine; ATTEND Internal Medicine
DX: R07.89 Other chest pain (principal); E78.5 Hyperlipidemia, unspecified; I10 Essential (primary) hypertension; Z90.89 Acquired absence of other organs; Z90.49 Acquired absence of other specified parts of digestive tract; Z98.890 Other specified postprocedural states; Z79.82 Long term (current) use of aspirin; Z79.899 Other long term (current) drug therapy; Z90.710 Acquired absence of both cervix and uterus

== ENCOUNTER → 2020-09-16 | Outpatient (CLI) | payer MEDICARE, OTHER | LOC: M.ULTRA 12:27 | PROVIDERS: ATTEND Family Medicine | DX: I70.203 Unspecified atherosclerosis of native arteries of extremities, bilateral legs (principal); M79.662 Pain in left lower leg; M79.661 Pain in right lower leg; M79.652 Pain in left thigh; M47.816 Spondylosis without myelopathy or radiculopathy, lumbar region; M41.86 Other forms of scoliosis, lumbar region; M43.16 Spondylolisthesis, lumbar region; M48.061 Spinal stenosis, lumbar region without neurogenic claudication ==

== ENCOUNTER 2020-10-10 15:14 | Observation (INO) | payer MEDICARE, OTHER ==
[~2020-10-10] VITALS: Ht 154.9 cm; Wt 71.5 kg
[~2020-10-10 15:14] MED LIST changes: +MEDROLDOSEPACK PO; +NEURONTIN 300M300 M2 PO
[2020-10-10 15:29] VITALS: BP 150/62
[2020-10-10 15:56] LABS: URINE BILIRUBIN NEGATIVE (Negative); URINE BLOOD NEGATIVE (Negative); URINE COLOR YELLOW; URINE GLUCOSE-RANDOM NEGATIVE (Negative); URINE KETONES NEGATIVE (Negative); URINE LEUKOCYTES-REFLEX TRACE (Negative); URINE NITRITE-REFLEX NEGATIVE (Negative); URINE PROTEIN NEGATIVE (Negative); URINE UROBILINOGEN 0.2 E.U./dl (0.2-1.0)
[2020-10-10 15:58] LABS: URINE CLARITY HAZY
[2020-10-10 16:11] LABS: ABSOLUTE BASOPHILS 0.1 thou/uL (0.0-0.2); ABSOLUTE EOSINOPHILS 0.3 thou/uL (0.0-0.7); ABSOLUTE LYMPHOCYTES 3.1 thou/uL (0.8-5.3); ABSOLUTE MONOCYTES 0.9 thou/uL (0.0-1.2); ABSOLUTE NEUTROPHILS 5.5 thou/uL (1.6-8.1); HEMOGLOBIN 11.5 gm/dL (12.0-15.0); LYMPHOCYTES 31.2 %; MONOCYTES 8.8 %; RDW-CV 14.5 % (10.5-14.5); WBC 9.8 thou/uL (4.0-11.0)
[2020-10-10 16:13] LABS: BASOPHILS 0.8 %; EOSINOPHILS 3.2 %; MCH 25.3 pg (26.0-34.0); MCHC 32.1 g/dL (28.0-37.0); MCV 78.8 fL (80.0-100.0); MPV 7.9 fl. (7.2-11.1); NUCLEATED RBCS 0 /100WBC; PLATELET COUNT* 224 thou/uL (150-400); RBC 4.57 mil/uL (4.20-5.00)
[2020-10-10 16:16] LABS: BACTERIA-REFLEX None Seen /HPF (None Seen); CASTS None Seen /LPF (None Seen); CRYSTALS None Seen /LPF (None Seen); SQUAMOUS 4-10 Moderate /LPF (0-3); URINE RBC None Seen /HPF (0-2); URINE WBC-REFLEX None Seen /HPF (0-5)
[2020-10-10 16:20] LABS: CALCIUM 8.9 mg/dL (8.5-10.1); CREATININE 1.2 mg/dL (0.6-1.3); POTASSIUM 4.1 mmol/L (3.5-5.1)
[2020-10-10 16:30] LABS: ALBUMIN 3.2 g/dL (3.4-5.0); TOTAL BILIRUBIN 0.4 mg/dL (<0.1-1.0); TOTAL PROTEIN 6.8 g/dL (6.4-8.2)
[2020-10-10 20:52] VITALS: BP 115/57
[2020-10-10 21:00] VITALS: BP 146/71
[2020-10-10 23:40] VITALS: BP 100/49
[2020-10-11 03:25] VITALS: BP 124/56
--- NOTE | 2020-10-11 12:46 | NUR ---
CM ASSESSMENT: PT A&O, INDEPENDENT WITH ADL'S, ACTIVE AND DRIVES. PT INFORMS THAT HER DTR DROVE HER TO THIS HOSPITAL AND WILL BE THE ONE TO PROVIDE TRANSPORT FOR HER BACK HOME. PT USES 0 DME. PT HAS 0 HX OF HH OR SNF. CM WILL REMAIN AVAILABLE TO ASSIST AND FOLLOW NEEDED.
[2020-10-11] MEDS ORDERED: MACROBID 100 M100 MG PO (14:59)
[2020-10-11 15:18] VITALS: BP 129/53
--- NOTE | 2020-10-13 10:45 | EKG ---
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 : 1935 Requested By: Joseluis Lopez Order Number: [id number] MD: Austyn Davis Measurements Intervals [place] Rate: 62 P: 43 [place]: 167 QRS: 9 QRSD: 83 T: 16 QT: 405 QTc: 412 Interpretive Statements Sinus rhythm Consider anterior infarct Compared to ECG 07/02/2020 09:31:19 Atrial premature complex(es) no longer present Myocardial infarct finding still present Electronically Signed On 10-13-2020 10:45:15 CDT by Austyn Davis [email or web address] <ELECTRONICALLY SIGNED> By: Austyn Davis MD, FACC 10/13/20 1045 1625 1625 Austyn Davis MD, [facility] /EPI
== END 2020-10-11 15:45 | disposition home or self-care (01) ==
LOC: M.ERS 15:14 → M.2W 17:33 → M.TBA-ER 17:33 → M.2W 20:48
PROVIDERS: Emergency Medicine Emergency Medical Services; ADMIT Internal Medicine; ATTEND Internal Medicine
DX: R10.31 Right lower quadrant pain (principal); R11.2 Nausea with vomiting, unspecified; R79.89 Other specified abnormal findings of blood chemistry; Z20.822 Contact with and (suspected) exposure to COVID-19; I10 Essential (primary) hypertension; K21.9 Gastro-esophageal reflux disease without esophagitis; E78.5 Hyperlipidemia, unspecified; G62.9 Polyneuropathy, unspecified; Z88.2 Allergy status to sulfonamides; Z90.49 Acquired absence of other specified parts of digestive tract; Z90.89 Acquired absence of other organs; Z90.710 Acquired absence of both cervix and uterus; Z88.8 Allergy status to other drugs, medicaments and biological substances; Z88.5 Allergy status to narcotic agent; Z79.82 Long term (current) use of aspirin; Z79.899 Other long term (current) drug therapy

== ENCOUNTER → 2021-03-25 | Outpatient (CLI) | payer MEDICARE, OTHER ==
[~2021-03-25] MED LIST changes: +MACROBID 100 M100 MG PO
[2021-03-25 11:50] LABS: CREATININE 1.2 mg/dL (0.6-1.3)
== END ==
LOC: M.LAB 11:00 → M.CT 12:00
PROVIDERS: ATTEND Family Medicine
DX: J98.4 Other disorders of lung (principal); K86.89 Other specified diseases of pancreas; M47.816 Spondylosis without myelopathy or radiculopathy, lumbar region; M41.86 Other forms of scoliosis, lumbar region; Z90.49 Acquired absence of other specified parts of digestive tract; Z90.710 Acquired absence of both cervix and uterus